=== PATIENT | male | born 1960 | race African-American/Black ===

== ENCOUNTER 2017-05-21 06:58 | Outpatient (CLI) | payer BC, OTHER ==
[2017-05-21 08:15] LABS: BASOPHILS % (AUTO) 0.3 % (0.0-2.0); EOSINOPHILS % (AUTO) 0.9 % (0.0-6.0); HEMATOCRIT 48 % (39-51); HEMOGLOBIN 16.4 g/dL (13.5-17.5); LYMPHOCYTES # (AUTO) 1.9 /CMM (0.8-4.8); LYMPHOCYTES % (AUTO) 40.7 % (20.0-44.0); MEAN CORPUSCULAR HEMOGLOBIN 32 PG (26.0-33.0); MEAN CORPUSCULAR HGB CONC 34 g/dl (31.0-36.0); MEAN CORPUSCULAR VOLUME 94 fL (80-96); MONOCYTES # (AUTO) 0.3 /CMM (0.1-1.30); MONOCYTES % (AUTO) 7.1 % (2.0-12.0); NEUTROPHILS # (AUTO) 2.3 /CMM (1.8-8.9); PLATELET COUNT (AUTO) 169 /CMM (150-450); RDW COEFFICIENT OF VARIATION 13.6 (11.5-15.0); RED BLOOD CELL COUNT(AUTO) 5.12 MIL/uL (4.5-6.0); WHITE BLOOD COUNT (AUTO) 4.6 K/uL (4.3-11.0)
[2017-05-21 08:33] LABS: BILIRUBIN,TOTAL 0.6 mg/dL (0.2-1.0); CALCIUM, SERUM 8.5 mg/dL (8.5-10.1); CREATININE 1.3 mg/dL (0.6-1.3); POTASSIUM 3.8 mmol/L (3.5-5.1); TOTAL PROTEIN, SERUM 7.6 g/dL (6.4-8.2)
[2017-05-21 08:46] LABS: PROSTATE SPECIFIC ANTIGEN SCR 0.43 ng/mL (0.00-4.00); THYROID STIMULATING HORMONE 1.502 uIU/mL (0.358-3.74); URIC ACID 7.2 mg/dL (2.6-7.2)
[2017-05-21 09:32] LABS: APPEARANCE,URINE CLEAR (CLEAR); BILIRUBIN,URINE NEGATIVE (NEGATIVE); BLOOD, URINE NEGATIVE Ery/uL (NEGATIVE); COLOR,URINE YELLOW (YELLOW); KETONES,URINE NEGATIVE (NEGATIVE); LEUKOCYTE ESTERASE ,URINE NEGATIVE (NEGATIVE); NITRITE, URINE NEGATIVE (NEGATIVE); PROTEIN,URINE NEGATIVE (NEGATIVE); UGLUCOSE NEGATIVE (NEGATIVE); UROBILINOGEN,URINE 0.2 EU/dL (0.2)
[2017-05-21 09:42] LABS: CREATINE KINASE MB 3.3 ng/mL (0-3.6)
[2017-05-22 08:18] LABS: *TESTOSTERONE, SERUM 543 ng/dL (264-916)
[2017-05-23 22:09] LABS: *TESTOSTERONE, FREE (DIRECT) 20.5 pg/mL (7.2-24.0)
== END 2017-05-21 23:59 | disposition home or self-care (01) ==
LOC: LAB 06:58
PROVIDERS: ATTEND Legal Medicine
DX: N40.0 Benign prostatic hyperplasia without lower urinary tract symptoms (principal); I10 Essential (primary) hypertension; E55.9 Vitamin D deficiency, unspecified; R79.89 Other specified abnormal findings of blood chemistry
CPT/HCPCS: 36415; 80053-TC; 80061-TC; 81000-TC; 82306; 82550-TC; 82553-TC; 84153-TC; 84402; 84403; 84439-TC; 84443-TC; 84550-TC; 85025-TC

== ENCOUNTER 2017-07-16 11:29 | Emergency (ER) | payer BC, OTHER ==
[~2017-07-16] VITALS: Ht 185.4 cm; Wt 104.3 kg
[2017-07-16 11:31] VITALS: BP 165/102
== END 2017-07-16 11:48 | disposition home or self-care (01) ==
LOC: ER 11:30
DX: M25.512 Pain in left shoulder (principal); I10 Essential (primary) hypertension
CPT/HCPCS: A4606; Z7502; Z7610

== ENCOUNTER 2017-11-12 10:31 | Emergency (ER) | payer BC, OTHER ==
[~2017-11-12] VITALS: Ht 185.4 cm; Wt 102.1 kg
[2017-11-12 10:31] VITALS: BP 182/93
== END 2017-11-12 11:29 | disposition home or self-care (01) ==
LOC: ER 10:34
DX: R06.6 Hiccough (principal); K21.9 Gastro-esophageal reflux disease without esophagitis; I10 Essential (primary) hypertension; F10.10 Alcohol abuse, uncomplicated; Y90.9 Presence of alcohol in blood, level not specified
CPT/HCPCS: 71045; 99283; A4606; Z7610

== ENCOUNTER 2017-11-29 11:44 | Outpatient (CLI) | payer BC, OTHER ==
[2017-11-30 08:11] LABS: *TESTOSTERONE, SERUM 303 ng/dL (264-916)
[2017-12-01 18:11] LABS: *TESTOSTERONE, FREE (DIRECT) 10.6 pg/mL (7.2-24.0)
== END 2017-11-29 23:59 | disposition home or self-care (01) ==
LOC: LAB 11:44
PROVIDERS: ATTEND Legal Medicine
DX: E03.9 Hypothyroidism, unspecified (principal); I10 Essential (primary) hypertension; K21.9 Gastro-esophageal reflux disease without esophagitis
CPT/HCPCS: 36415; 84402; 84403

== ENCOUNTER 2018-07-22 10:59 | Emergency (ER) | payer OTHER ==
[~2018-07-22] VITALS: Ht 185.4 cm; Wt 104.3 kg
[2018-07-22 10:59] VITALS: BP 177/118
[2018-07-22] MEDS ORDERED: IBUPROFEN 400 MG TABLET ONE (11:41)
[2018-07-22] MEDS: IBUPROFEN 400 MG TABLET PO ONE (11:46)
--- NOTE | 2018-07-22 11:46 | NUR ---
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
== END 2018-07-22 13:27 | disposition home or self-care (01) ==
LOC: ER 11:02
DX: S89.82XA Other specified injuries of left lower leg, initial encounter (principal); M17.12 Unilateral primary osteoarthritis, left knee; I10 Essential (primary) hypertension; K21.9 Gastro-esophageal reflux disease without esophagitis; F10.10 Alcohol abuse, uncomplicated; Y90.9 Presence of alcohol in blood, level not specified; X50.1XXA Overexertion from prolonged static or awkward postures, initial encounter; Y93.89 Activity, other specified; Y92.89 Other specified places as the place of occurrence of the external cause; Y99.8 Other external cause status
CPT/HCPCS: 73564-TC

== ENCOUNTER 2018-07-23 09:21 | Outpatient (CLI) | payer OTHER | END 2018-07-23 23:59 | disposition home or self-care (01) | LOC: MRI 09:21 | PROVIDERS: ATTEND Specialist | DX: S83.412A Sprain of medial collateral ligament of left knee, initial encounter (principal); S83.242A Other tear of medial meniscus, current injury, left knee, initial encounter; M25.462 Effusion, left knee; M65.862 Other synovitis and tenosynovitis, left lower leg; X58.XXXA Exposure to other specified factors, initial encounter; Y93.89 Activity, other specified; Y92.89 Other specified places as the place of occurrence of the external cause; Y99.8 Other external cause status | CPT/HCPCS: 73721-TC ==

== ENCOUNTER 2018-08-02 09:01 | Outpatient (CLI) | payer BC | END 2018-08-02 23:59 | disposition home or self-care (01) | LOC: CARD 09:01 | PROVIDERS: ATTEND Internal Medicine Interventional Cardiology | DX: I34.0 Nonrheumatic mitral (valve) insufficiency (principal); I11.9 Hypertensive heart disease without heart failure; I70.0 Atherosclerosis of aorta | CPT/HCPCS: 93307-TC ==

== ENCOUNTER 2018-08-09 10:06 | Outpatient (CLI) | payer BC ==
[2018-08-09 13:07] LABS: CHOLESTEROL 173 mg/dL (<200); HDL CHOLESTEROL 50 mg/dL (40-60); LDL 106 mg/dL (0-99); TRIGLYCERIDES 90 mg/dL (30-150)
== END 2018-08-09 23:59 | disposition home or self-care (01) ==
LOC: LAB 10:06
PROVIDERS: ATTEND Internal Medicine Interventional Cardiology
DX: I10 Essential (primary) hypertension (principal); R53.83 Other fatigue
CPT/HCPCS: 36415; 80061-TC; 82306

== ENCOUNTER 2018-08-19 08:33 | Outpatient (CLI) | payer BC ==
[2018-08-19 09:26] LABS: BASOPHILS % (AUTO) 0.6 % (0.0-2.0); BILIRUBIN,URINE NEGATIVE (NEGATIVE); BLOOD, URINE NEGATIVE Ery/uL (NEGATIVE); COLOR,URINE YELLOW (YELLOW); HEMATOCRIT 47 % (39-51); HEMOGLOBIN 15.9 g/dL (13.5-17.5); KETONES,URINE NEGATIVE (NEGATIVE); LEUKOCYTE ESTERASE ,URINE NEGATIVE (NEGATIVE); LYMPHOCYTES # (AUTO) 1.6 /CMM (0.8-4.8); LYMPHOCYTES % (AUTO) 36.2 % (20.0-44.0); MEAN CORPUSCULAR HGB CONC 34 g/dl (31.0-36.0); MEAN CORPUSCULAR VOLUME 95 fL (80-96); MONOCYTES # (AUTO) 0.3 /CMM (0.1-1.30); MONOCYTES % (AUTO) 7.9 % (2.0-12.0); NEUTROPHILS # (AUTO) 2.4 /CMM (1.8-8.9); NEUTROPHILS % (AUTO) 54.3 % (43.0-81.0); NITRITE, URINE NEGATIVE (NEGATIVE); PH,URINE 7.5 (5.0-8.0); PLATELET COUNT (AUTO) 193 /CMM (150-450); PROTEIN,URINE NEGATIVE (NEGATIVE); RED BLOOD CELL COUNT(AUTO) 4.93 MIL/uL (4.5-6.0); UGLUCOSE NEGATIVE (NEGATIVE); WHITE BLOOD COUNT (AUTO) 4.4 K/uL (4.3-11.0)
[2018-08-19 09:32] LABS: APPEARANCE,URINE CLEAR (CLEAR)
[2018-08-19 09:38] LABS: ALBUMIN 3.9 g/dL (3.4-5.0); BILIRUBIN,TOTAL 0.7 mg/dL (0.2-1.0); CALCIUM, SERUM 9.2 mg/dL (8.5-10.1); CREATININE 1.3 mg/dL (0.6-1.3); POTASSIUM 3.7 mmol/L (3.5-5.1); TOTAL PROTEIN, SERUM 7.6 g/dL (6.4-8.2)
[2018-08-19 10:29] LABS: FREE T4 (FREE THYROXINE) 0.77 ng/dL (0.76-1.46); PROSTATE SPECIFIC ANTIGEN SCR 0.45 ng/mL (0.00-4.00); THYROID STIMULATING HORMONE 1.118 uIU/mL (0.358-3.74); URIC ACID 7.6 mg/dL (2.6-7.2)
[2018-08-20 09:14] LABS: CHOLESTEROL 153 mg/dL (<200); HDL CHOLESTEROL 47 mg/dL (40-60); LDL 108 mg/dL (0-99); TRIGLYCERIDES 57 mg/dL (30-150)
== END 2018-08-19 23:59 | disposition home or self-care (01) ==
LOC: LAB 08:33
PROVIDERS: ATTEND Legal Medicine
DX: Z00.00 Encounter for general adult medical examination without abnormal findings (principal); I10 Essential (primary) hypertension; E78.5 Hyperlipidemia, unspecified; E03.9 Hypothyroidism, unspecified; D64.9 Anemia, unspecified; E55.9 Vitamin D deficiency, unspecified
CPT/HCPCS: 36415; 80053-TC; 80061-TC; 81000-TC; 82306; 82728-TC; 83540-TC; 84153-TC; 84402; 84403; 84439-TC; 84443-TC; 84550-TC; 85025-TC

== ENCOUNTER 2018-09-06 09:48 | Outpatient (CLI) | payer BC | END 2018-09-06 23:59 | disposition home or self-care (01) | LOC: US 09:48 | PROVIDERS: ATTEND Internal Medicine Interventional Cardiology | DX: I10 Essential (primary) hypertension (principal) ==

== ENCOUNTER 2018-11-21 12:57 | Emergency (ER) | payer BC, OTHER ==
[~2018-11-21] VITALS: Ht 185.4 cm; Wt 106.6 kg
[2018-11-21 13:02] VITALS: BP 149/103
--- NOTE | 2018-11-21 13:59 | NUR ---
Patient discharged to home in stable condition. Written and verbal after care instructions given. Patient verbalizes understanding of instruction.
== END 2018-11-21 14:03 | disposition home or self-care (01) ==
LOC: ER 12:58
DX: G56.01 Carpal tunnel syndrome, right upper limb (principal); I10 Essential (primary) hypertension; K21.9 Gastro-esophageal reflux disease without esophagitis

== ENCOUNTER 2019-02-14 06:31 | Day surgery (SDC) | payer BC ==
[2019-02-14] MEDS ORDERED: ANESTHESIA TRAY IN PYXIS 1 EA TRAY MC ONE (07:08)
[2019-02-14] MEDS ORDERED: IOHEXOL 240MG/ML 50 ML IV ONE (07:08)
[2019-02-14] MEDS ORDERED: methylPREDNISolone ACETATE 80 MG/ML VIAL ONE (07:08)
[2019-02-14] MEDS ORDERED: BUPIVACAINE 0.5 % PF 150 MG/30 ML VIAL ONE (07:08)
[2019-02-14] MEDS ORDERED: FENTANYL PF 100MCG/2ML AMPUL ONE (07:09)
[2019-02-14] MEDS ORDERED: MIDAZOLAM HCL 2 MG/2ML VIAL ONE (07:09)
[2019-02-14] MEDS ORDERED: LIDOCAINE HCL/MPF 1% 30 ML VIAL IJ ONE (07:31)
[2019-02-14] MEDS ORDERED: DEXAMETHASONE SOD PHOSPHATE 10 MG/ML VIAL ONE (07:32)
[2019-02-14] MEDS ORDERED: ONDANSETRON HCL/PF 4 MG/2 ML VIAL ONE (08:56)
== END 2019-02-14 09:20 | disposition home or self-care (01) ==
LOC: DS 06:31
PROVIDERS: ATTEND Radiology Neuroradiology
DX: M47.22 Other spondylosis with radiculopathy, cervical region (principal); G89.4 Chronic pain syndrome; M54.2 Cervicalgia; I10 Essential (primary) hypertension; Z79.899 Other long term (current) drug therapy
CPT/HCPCS: 62321; 72040; J1100; J2250; J2405; J3010; J3490; Q9966; J1040